=== PATIENT | female | born 2000 | race Caucasian/White ===

== ENCOUNTER → 2023-05-30 | Outpatient (REF) | payer OTHER ==
[2023-05-30 18:44] LABS: URINE PREG TEST NEGATIVE (NEGATIVE)
[2023-05-30 18:51] LABS: APPEARANCE, URINE HAZY (CLEAR); BACTERIA, URINE AUTO NEGATIVE (NEGATIVE); BILIRUBIN, URINE AUTO NEGATIVE (NEGATIVE); BLOOD, URINE BLOOD 3+ (NEGATIVE); COLOR, URINE YELLOW (YELLOW); GLUCOSE, URINE (UA) AUTO NEGATIVE (NEGATIVE); KETONE, URINE AUTO NEGATIVE (NEGATIVE); LEUKOCYTE ESTERASE, URINE AUTO NEGATIVE (NEGATIVE); MUCUS, URINE SMALL (NEGATIVE); NITRITE, URINE AUTO NEGATIVE (NEGATIVE); PROTEIN, URINE AUTO NEGATIVE (NEGATIVE); RBC, URINE AUTO 17 /HPF (0-3); SQUAMOUS EPITHELIAL CELL UR AU 9 /HPF (0-6); UROBILINOGEN, URINE AUTO 0.2 mg/dL (0.0-2.0); WBC, URINE AUTO 3 /HPF (0-3)
== END ==
LOC: M LAB REF 18:24
PROVIDERS: ATTEND Physician Assistant Medical
DX: N39.0 Urinary tract infection, site not specified (principal)

== ENCOUNTER 2023-06-03 07:43 | Emergency (ER) | payer OTHER ==
[~2023-06-03] VITALS: Ht 175.3 cm; Wt 90.9 kg
[2023-06-03 08:35] LABS: BASO # 0.1 10^3/uL (0.0-0.2); BASO % 0.6 % (0.0-1.0); EOS # 0.1 10^3/uL (0.0-0.5); HEMATOCRIT 39.9 % (36.0-47.0); HEMOGLOBIN 14.1 g/dl (12.0-15.5); LYMPH % 18.8 % (24.0-44.0); MEAN CORPUSCULAR HEMOGLOBIN 30.7 pg (27.0-33.0); MEAN CORPUSCULAR HGB CONC 35.3 g/dl (32.0-36.5); MEAN CORPUSCULAR VOLUME 86.9 fl (80.0-96.0); MONO # 0.8 10^3/uL (0.0-0.8); MONO % 7.2 % (2.0-8.0); NEUTROPHILS # 7.5 10^3/uL (1.5-8.5); NEUTROPHILS % 71.7 % (36.0-66.0); PLATELET COUNT, AUTOMATED 312 10^3/uL (150-450); RED BLOOD COUNT 4.59 10^6/uL (4.00-5.40); WHITE BLOOD COUNT 10.5 10^3/uL (4.0-10.0)
[2023-06-03 08:50] LABS: BLOOD UREA NITROGEN 13 MG/DL (9-23); CALCIUM LEVEL 9.1 MG/DL (8.5-10.1); CARBON DIOXIDE LEVEL 24 MMOL/L (20-31); CHLORIDE LEVEL 107 MMOL/L (98-107); CREATININE FOR GFR 0.65 MG/DL (0.55-1.30); GLOMERULAR FILTRATION RATE > 60.0 (>60); GLUCOSE, FASTING 123 MG/DL (60-100); POTASSIUM SERUM 4.1 MMOL/L (3.5-5.1); SODIUM LEVEL 139 MMOL/L (136-145)
[2023-06-03 10:17] LABS: GC DNA AMPLIFICATION NEGATIVE (NEGATIVE)
[2023-06-03] MEDS ORDERED: metroNIDAZOLE (FLAGYL) 500MG TABLET PO ONE (11:55)
[2023-06-03] MEDS ORDERED: METR-265 PO (11:56)
[2023-06-03 12:03] VITALS: BP 140/85; TEMP 97.9; O2SAT 97
[2023-06-03] MEDS ORDERED: ACETAMINOPHEN 500 MG TAB PO ONE (12:05)
[2023-06-04] MEDS ORDERED: NAPR-837 PO (16:21)
[2023-06-04] MEDS ORDERED: ONDA4TAB6 PO (16:22)
== END 2023-06-03 12:12 | disposition home or self-care (01) ==
LOC: M ED 07:43
DX: N76.1 Subacute and chronic vaginitis (principal); N83.201 Unspecified ovarian cyst, right side; R10.2 Pelvic and perineal pain; F31.9 Bipolar disorder, unspecified

== ENCOUNTER 2023-06-04 14:31 | Emergency (ER) | payer OTHER ==
[~2023-06-04] VITALS: Ht 175.3 cm; Wt 101.0 kg
[~2023-06-04 14:31] MED LIST: METR-265 PO
[2023-06-04] MEDS ORDERED: KETOROLAC 60MG 2ML VIAL IM ONE (15:45)
[2023-06-04] MEDS ORDERED: NAPR-837 PO (16:21)
[2023-06-04] MEDS ORDERED: ONDA4TAB6 PO (16:22)
[2023-06-04 16:35] VITALS: BP 124/78; TEMP 97.3; O2SAT 98
== END 2023-06-04 16:37 | disposition home or self-care (01) ==
LOC: M ED 14:31
DX: N83.291 Other ovarian cyst, right side (principal)
CPT/HCPCS: 76830; 76856; 80047; 93976; 96372; 99283; J1885

== ENCOUNTER 2023-06-12 00:03 | Emergency (ER) | payer OTHER ==
[~2023-06-12] VITALS: Ht 175.3 cm; Wt 102.0 kg
[~2023-06-12 00:03] MED LIST changes: +NAPR-837 PO; +ONDA4TAB6 PO
[2023-06-12 00:04] VITALS: BP 147/95; TEMP 98.9; O2SAT 96
[2023-06-12 02:19] LABS: BASO # 0.1 10^3/uL (0.0-0.2); BASO % 0.8 % (0.0-1.0); EOS # 0.4 10^3/uL (0.0-0.5); EOS % 3.4 % (0.0-3.0); HEMATOCRIT 39.5 % (36.0-47.0); HEMOGLOBIN 13.5 g/dl (12.0-15.5); LYMPH # 2.7 10^3/uL (1.5-5.0); LYMPH % 26.6 % (24.0-44.0); MEAN CORPUSCULAR HEMOGLOBIN 30.4 pg (27.0-33.0); MEAN CORPUSCULAR HGB CONC 34.2 g/dl (32.0-36.5); MONO # 0.9 10^3/uL (0.0-0.8); MONO % 8.8 % (2.0-8.0); NEUTROPHILS # 6.2 10^3/uL (1.5-8.5); NEUTROPHILS % 59.8 % (36.0-66.0); PLATELET COUNT, AUTOMATED 306 10^3/uL (150-450); RED BLOOD COUNT 4.44 10^6/uL (4.00-5.40); WHITE BLOOD COUNT 10.3 10^3/uL (4.0-10.0)
[2023-06-12 02:38] LABS: LIPASE 72 U/L (12-53)
[2023-06-12 02:40] LABS: ALBUMIN 4.2 G/DL (3.2-5.2); ALKALINE PHOSPHATASE 73 U/L (46-116); ALT/SGPT 44 U/L (7.0-40); AST/SGOT 23 U/L (<34); BILIRUBIN,DIRECT 0.2 MG/DL (<0.4); BILIRUBIN,TOTAL 0.6 MG/DL (0.3-1.2); BLOOD UREA NITROGEN 12 MG/DL (9-23); CALCIUM LEVEL 9.2 MG/DL (8.5-10.1); CARBON DIOXIDE LEVEL 26 MMOL/L (20-31); CHLORIDE LEVEL 104 MMOL/L (98-107); CREATININE FOR GFR 0.64 MG/DL (0.55-1.30); GLOMERULAR FILTRATION RATE > 60.0 (>60); GLUCOSE, FASTING 92 MG/DL (60-100); POTASSIUM SERUM 4.2 MMOL/L (3.5-5.1); SODIUM LEVEL 139 MMOL/L (136-145); TOTAL PROTEIN 6.9 G/DL (5.7-8.2)
== END 2023-06-12 05:35 | disposition left against medical advice (07) ==
LOC: M ED 00:03
DX: Z53.21 Procedure and treatment not carried out due to patient leaving prior to being seen by health care provider (principal)

== ENCOUNTER 2023-09-04 16:19 | Emergency (ER) | payer OTHER ==
[~2023-09-04] VITALS: Ht 175.3 cm; Wt 98.4 kg
[2023-09-04 17:36] LABS: BASO # 0.1 10^3/uL (0.0-0.2); BASO % 0.6 % (0.0-1.0); EOS # 0.2 10^3/uL (0.0-0.5); EOS % 1.9 % (0.0-3.0); HEMOGLOBIN 13.5 g/dl (12.0-15.5); LYMPH # 2.4 10^3/uL (1.5-5.0); LYMPH % 28.6 % (24.0-44.0); MEAN CORPUSCULAR HEMOGLOBIN 30.4 pg (27.0-33.0); MEAN CORPUSCULAR HGB CONC 35.5 g/dl (32.0-36.5); MEAN CORPUSCULAR VOLUME 85.6 fl (80.0-96.0); MONO # 0.7 10^3/uL (0.0-0.8); MONO % 7.8 % (2.0-8.0); NEUTROPHILS # 5.1 10^3/uL (1.5-8.5); NEUTROPHILS % 60.5 % (36.0-66.0); PLATELET COUNT, AUTOMATED 262 10^3/uL (150-450); RED BLOOD COUNT 4.44 10^6/uL (4.00-5.40); WHITE BLOOD COUNT 8.4 10^3/uL (4.0-10.0)
[2023-09-04 18:01] LABS: BLOOD UREA NITROGEN 12 MG/DL (9-23); CALCIUM LEVEL 9.9 MG/DL (8.5-10.1); CARBON DIOXIDE LEVEL 27 MMOL/L (20-31); CHLORIDE LEVEL 105 MMOL/L (98-107); CREATININE FOR GFR 0.52 MG/DL (0.55-1.30); GLOMERULAR FILTRATION RATE > 60.0 (>60); GLUCOSE, FASTING 91 MG/DL (60-100); POTASSIUM SERUM 4.1 MMOL/L (3.5-5.1); SODIUM LEVEL 137 MMOL/L (136-145)
[2023-09-04 18:17] LABS: HCG, SERUM QUANTITATIVE 8549.5 MIU/ML (<4.2)
[2023-09-04 20:56] VITALS: BP 163/90; TEMP 98.6; O2SAT 100
== END 2023-09-04 20:57 | disposition home or self-care (01) ==
LOC: M ED 16:19
DX: O20.0 Threatened abortion (principal)

== ENCOUNTER 2023-09-06 17:23 | Day surgery (SDC) | payer OTHER ==
[~2023-09-06] VITALS: Ht 175.3 cm; Wt 99.3 kg
[~2023-09-06 17:23] MED LIST changes: +LIDOCAINE 1% SDV 30ML VIAL As Ordered ONE
[2023-09-06] MEDS: DOXYCYCLINE HYCLATE 100MG TABLET PO ONE ×2 (18:05→20:18)
[2023-09-06] MEDS ORDERED: propofoL 200 MG/20 ML VIAL As Ordered ONE ×2 (19:49→21:30)
[2023-09-06] MEDS ORDERED: fentaNYL 100 MCG/2 ML INJECTION As Ordered ONE ×2 (19:49→22:10)
[2023-09-06] MEDS ORDERED: LIDOCAINE 2% 100MG/5ML SDV (FOR ANES.) As Ordered ONE (19:49)
[2023-09-06] MEDS ORDERED: MIDAZOLAM INJ 2MG/2ML VIAL As Ordered ONE (19:49)
[2023-09-06] MEDS ORDERED: ONDANSETRON 4MG 2ML VIAL As Ordered ONE (19:50)
[2023-09-06] MEDS ORDERED: KETOROLAC 30 MG/ML 1ML VIAL IV STA (20:09)
[2023-09-06] MEDS ORDERED: METHYLERGONOVINE MALEATE 0.2MG/ML 1ML VIAL As Ordered ONE (21:41)
[2023-09-06] MEDS ORDERED: oxyCODONE 5MG TAB PO STA (23:01)
[2023-09-06 23:21] VITALS: BP 134/75; TEMP 97.9; O2SAT 99
== END 2023-09-06 23:33 | disposition home or self-care (01) ==
LOC: M SDC 17:23
PROVIDERS: ATTEND Obstetrics & Gynecology
DX: O02.1 Missed abortion (principal); O99.341 Other mental disorders complicating pregnancy, first trimester; F60.3 Borderline personality disorder; F43.10 Post-traumatic stress disorder, unspecified
CPT/HCPCS: 59820; 88305; J1100; J1885; J2250; J2405; J3010

== ENCOUNTER → 2023-09-29 | Outpatient (REF) | payer OTHER ==
[~2023-09-29] MED LIST changes: -LIDOCAINE 1% SDV 30ML VIAL As Ordered ONE
== END ==
LOC: M LAB REF 16:13
PROVIDERS: ATTEND Physician Assistant
DX: J02.9 Acute pharyngitis, unspecified (principal)

== ENCOUNTER 2024-04-24 17:28 | Emergency (ER) | payer OTHER ==
[~2024-04-24] VITALS: Ht 175.3 cm; Wt 80.4 kg
[~2024-04-24 17:28] MED LIST changes: +ONDA-282 PO; -ONDA4TAB6 PO
[2024-04-24] MEDS: ACETAMINOPHEN TAB 650MG DOSE (2X325MG) PO ONE (20:15)
[2024-04-24 21:15] VITALS: BP 130/69; TEMP 97.1; O2SAT 100
== END 2024-04-24 21:18 | disposition home or self-care (01) ==
LOC: M ED 17:28
DX: R51.9 Headache, unspecified (principal); R10.2 Pelvic and perineal pain; F31.9 Bipolar disorder, unspecified; F90.9 Attention-deficit hyperactivity disorder, unspecified type

== ENCOUNTER → 2024-05-16 | Outpatient (CLI) | payer OTHER ==
[2024-05-16 13:57] LABS: HEMATOCRIT 38.1 % (36.0-47.0); HEMOGLOBIN 12.8 g/dl (12.0-15.5); MEAN CORPUSCULAR HEMOGLOBIN 29.7 pg (27.0-33.0); MEAN CORPUSCULAR HGB CONC 33.6 g/dl (32.0-36.5); MEAN CORPUSCULAR VOLUME 88.4 fl (80.0-96.0); PLATELET COUNT, AUTOMATED 244 10^3/uL (150-450); RED BLOOD COUNT 4.31 10^6/uL (4.00-5.40); WHITE BLOOD COUNT 12.2 10^3/uL (4.0-10.0)
[2024-05-16 14:46] LABS: HIV 1&2 SCREEN NEGATIVE (NEGATIVE)
[2024-05-16 14:55] LABS: HEPATITIS C VIRUS ABY INDEX 0.02 INDEX (<0.8)
[2024-05-16 15:10] LABS: GC DNA AMPLIFICATION NEGATIVE (NEGATIVE)
== END ==
LOC: M PLALAB 09:17
PROVIDERS: ATTEND Obstetrics & Gynecology
DX: Z34.81 Encounter for supervision of other normal pregnancy, first trimester (principal)

== ENCOUNTER → 2024-07-21 | Outpatient (CLI) | payer OTHER | LOC: M WHC 14:41 | PROVIDERS: ATTEND Obstetrics & Gynecology | DX: O32.1XX0 Maternal care for breech presentation, not applicable or unspecified (principal); Z3A.19 19 weeks gestation of pregnancy ==

== ENCOUNTER → 2024-08-17 | Outpatient (REF) | payer OTHER | LOC: M LAB REF 17:48 | PROVIDERS: ATTEND Physician Assistant Medical | DX: J02.9 Acute pharyngitis, unspecified (principal) ==

== ENCOUNTER 2024-08-26 14:56 | Outpatient (CLI) | payer OTHER ==
[~2024-08-26] VITALS: Ht 175.3 cm; Wt 95.1 kg
[2024-08-26 15:20] VITALS: BP 124/68
[2024-08-26] MEDS ORDERED: ACET-897 PO (15:24)
[2024-08-26] MEDS ORDERED: PRENTAB9 PO (15:24)
== END 2024-08-26 16:10 | disposition home or self-care (01) ==
LOC: M LDO 14:56
PROVIDERS: ATTEND Obstetrics & Gynecology
DX: O36.8120 Decreased fetal movements, second trimester, not applicable or unspecified (principal); Z3A.24 24 weeks gestation of pregnancy
CPT/HCPCS: 59025; G0463

== ENCOUNTER 2024-09-17 14:19 | Outpatient (CLI) | payer OTHER ==
[2024-09-17] VITALS (11 sets, daily range): BP systolic 118–148; BP diastolic 65–94; O2SAT 95–97
[~2024-09-17] VITALS: Ht 175.3 cm; Wt 100.4 kg
[~2024-09-17 14:19] MED LIST changes: +ACET-897 PO; +PRENTAB9 PO
[2024-09-17] MEDS ORDERED: HOME MED LIST COMPLETE! XX SCH (14:40)
[2024-09-17] MEDS: IBUPROFEN 600MG TAB PO ONE (15:46)
[2024-09-17 15:51] LABS: CREATININE,RANDOM URINE 24.5 MG/DL
[2024-09-17 15:56] LABS: TOTAL PROTEIN,RANDOM URINE < 6.0 MG/DL (0.0-14.0)
[2024-09-17 16:03] LABS: HEMATOCRIT 34.7 % (36.0-47.0); HEMOGLOBIN 11.9 g/dl (12.0-15.5); MEAN CORPUSCULAR HEMOGLOBIN 30.4 pg (27.0-33.0); MEAN CORPUSCULAR HGB CONC 34.3 g/dl (32.0-36.5); MEAN CORPUSCULAR VOLUME 88.7 fl (80.0-96.0); PLATELET COUNT, AUTOMATED 212 10^3/uL (150-450); RED BLOOD COUNT 3.91 10^6/uL (4.00-5.40)
[2024-09-17 16:27] LABS: URIC ACID 3.3 MG/DL (3.1-7.8)
[2024-09-17 16:29] LABS: LDH LACTATE DEHYDROGENASE 196 U/L (120-246)
[2024-09-17 16:30] LABS: ALT/SGPT 18 U/L (7.0-40); AST/SGOT 12 U/L (<34); BILIRUBIN,TOTAL 0.4 MG/DL (0.3-1.2); CREATININE FOR GFR 0.39 MG/DL (0.55-1.30); GLOMERULAR FILTRATION RATE > 60.0 (>60)
== END 2024-09-17 17:30 | disposition home or self-care (01) ==
LOC: M LDO 14:19
PROVIDERS: ATTEND Specialist
DX: O26.892 Other specified pregnancy related conditions, second trimester (principal); R51.9 Headache, unspecified; R00.9 Unspecified abnormalities of heart beat; Z3A.27 27 weeks gestation of pregnancy
CPT/HCPCS: 36415; 59025; 82247; 82570; 83615; 84156; 84450; 84460; 84550; 85027; 93005; G0463

== ENCOUNTER → 2024-09-22 | Outpatient (CLI) | payer OTHER ==
[2024-09-22 15:27] LABS: HEMATOCRIT 34.7 % (36.0-47.0); HEMOGLOBIN 11.8 g/dl (12.0-15.5); MEAN CORPUSCULAR HEMOGLOBIN 30.3 pg (27.0-33.0); PLATELET COUNT, AUTOMATED 220 10^3/uL (150-450); WHITE BLOOD COUNT 10.1 10^3/uL (4.0-10.0)
[2024-09-22 15:53] LABS: GLUCOSE CHALLENGE TEST 1 HOUR 93 MG/DL (LESS THAN 140)
[2024-09-22 16:04] LABS: FREE T4 1.16 NG/DL (0.89-1.76)
[2024-09-22 16:05] LABS: THYROID STIMULATING HORMONE 0.587 uIU/ML (0.55-4.78)
[2024-09-22 16:29] LABS: HIV 1&2 SCREEN NEGATIVE (NEGATIVE)
[2024-09-22 16:37] LABS: HEPATITIS C VIRUS ABY INDEX 0.13 INDEX (<0.8)
[2024-09-22 17:42] LABS: GC DNA AMPLIFICATION NEGATIVE (NEGATIVE)
== END ==
LOC: M PLALAB 12:01
PROVIDERS: ATTEND Obstetrics & Gynecology
DX: Z34.82 Encounter for supervision of other normal pregnancy, second trimester (principal)
CPT/HCPCS: 36415; 82950; 84439; 84443; 85027; 86780; 86803; 86850; 86900; 86901; 87389; 87810; 87850; J2790

== ENCOUNTER → 2024-09-26 | Outpatient (REF) | payer OTHER ==
[2024-09-26 14:52] LABS: TOTAL PROTEIN,RANDOM URINE 17.9 MG/DL (0.0-14.0)
[2024-09-26 14:57] LABS: CREATININE,RANDOM URINE 116.5 MG/DL
[2024-09-26 15:14] LABS: Trichomonas vaginalis (AMP) NOT DETECTED (NEGATIVE)
[2024-09-26 15:39] LABS: GC DNA AMPLIFICATION NEGATIVE (NEGATIVE)
== END ==
LOC: M SFHCWAGY 12:50
PROVIDERS: ATTEND Obstetrics & Gynecology
DX: O13.3 Gestational [pregnancy-induced] hypertension without significant proteinuria, third trimester (principal); R35.0 Frequency of micturition; R39.15 Urgency of urination

== ENCOUNTER → 2024-09-27 | Outpatient (REF) | payer OTHER ==
[2024-09-27 18:15] LABS: HEMATOCRIT 36.2 % (36.0-47.0); HEMOGLOBIN 12.2 g/dl (12.0-15.5); MEAN CORPUSCULAR HGB CONC 33.7 g/dl (32.0-36.5); MEAN CORPUSCULAR VOLUME 88.9 fl (80.0-96.0); PLATELET COUNT, AUTOMATED 230 10^3/uL (150-450); RED BLOOD COUNT 4.07 10^6/uL (4.00-5.40); WHITE BLOOD COUNT 11.9 10^3/uL (4.0-10.0)
[2024-09-27 18:22] LABS: LDH LACTATE DEHYDROGENASE 165 U/L (120-246)
[2024-09-27 18:23] LABS: ALT/SGPT 39 U/L (7.0-40); AST/SGOT 25 U/L (<34); BILIRUBIN,TOTAL 0.4 MG/DL (0.3-1.2); CREATININE FOR GFR 0.46 MG/DL (0.55-1.30); GLOMERULAR FILTRATION RATE > 60.0 (>60)
[2024-09-27 18:37] LABS: URIC ACID 3.3 MG/DL (3.1-7.8)
== END ==
LOC: M SFHCWAGY 17:32
PROVIDERS: ATTEND Obstetrics & Gynecology
DX: O13.3 Gestational [pregnancy-induced] hypertension without significant proteinuria, third trimester (principal)

== ENCOUNTER 2024-10-03 12:21 | Emergency (ER) | payer OTHER ==
[~2024-10-03] VITALS: Ht 175.3 cm; Wt 101.6 kg
[2024-10-03] MEDS ORDERED: LABE100T40 PO (12:33)
[2024-10-03 14:30] LABS: BASO # 0.1 10^3/uL (0.0-0.2); BASO % 0.7 % (0.0-1.0); EOS # 0.1 10^3/uL (0.0-0.5); EOS % 0.6 % (0.0-3.0); HEMATOCRIT 35.6 % (36.0-47.0); HEMOGLOBIN 12.2 g/dl (12.0-15.5); LYMPH # 1.5 10^3/uL (1.5-5.0); MEAN CORPUSCULAR HEMOGLOBIN 30.3 pg (27.0-33.0); MEAN CORPUSCULAR HGB CONC 34.3 g/dl (32.0-36.5); MEAN CORPUSCULAR VOLUME 88.3 fl (80.0-96.0); MONO # 0.9 10^3/uL (0.0-0.8); MONO % 7.5 % (2.0-8.0); NEUTROPHILS # 8.4 10^3/uL (1.5-8.5); NEUTROPHILS % 73.4 % (36.0-66.0); PLATELET COUNT, AUTOMATED 224 10^3/uL (150-450); RED BLOOD COUNT 4.03 10^6/uL (4.00-5.40); WHITE BLOOD COUNT 11.4 10^3/uL (4.0-10.0)
[2024-10-03 14:33] LABS: KETONE, URINE AUTO RFX NEGATIVE (NEGATIVE); LEUKOCYTE ESTERASE UR AUTO RFX NEGATIVE (NEGATIVE); MUCUS, URINE RFX SMALL (NEGATIVE); NITRITE, URINE AUTO RFX NEGATIVE (NEGATIVE); RBC, URINE AUTO RFX 1 /HPF (0-3); SQUAM EPITHELIAL CELL UR AURFX 4 /HPF (0-6); WBC, URINE AUTO RFX 3 /HPF (0-3)
[2024-10-03 14:43] LABS: INR 0.88; PROTHROMBIN TIME 12.3 SECONDS (12.5-14.5)
[2024-10-03 14:54] LABS: CK-MB VALUE MASS < 1.0 NG/ML (<3.6); LIPASE 44 U/L (12-53)
[2024-10-03 14:56] LABS: CPK CREATINE PHOSPHOKINASE 49 U/L (34-145); MB/CK RELATIVE INDEX 2.04 (< OR =4)
[2024-10-03 14:57] LABS: ALBUMIN 3.1 G/DL (3.2-5.2); ALKALINE PHOSPHATASE 78 U/L (35-104); ALT/SGPT 59 U/L (7.0-40); AST/SGOT 39 U/L (<34); BILIRUBIN,DIRECT 0.1 MG/DL (<0.4); BILIRUBIN,TOTAL 0.6 MG/DL (0.3-1.2); BLOOD UREA NITROGEN 9 MG/DL (9-23); CALCIUM LEVEL 8.9 MG/DL (8.5-10.1); CARBON DIOXIDE LEVEL 22 MMOL/L (20-31); CHLORIDE LEVEL 107 MMOL/L (98-107); CREATININE FOR GFR 0.38 MG/DL (0.55-1.30); GLOMERULAR FILTRATION RATE > 60.0 (>60); GLUCOSE, FASTING 86 MG/DL (60-100); POTASSIUM SERUM 4.3 MMOL/L (3.5-5.1); SODIUM LEVEL 139 MMOL/L (136-145); TOTAL PROTEIN 6.5 G/DL (5.7-8.2)
[2024-10-03 18:15] VITALS: BP 126/77
[2024-10-03 18:22] LABS: MAGNESIUM LEVEL 1.8 MG/DL (1.8-2.4)
[2024-10-03 18:30] VITALS: TEMP 98.1; O2SAT 98
== END 2024-10-03 18:40 | disposition home or self-care (01) ==
LOC: M ED 12:21
DX: R07.89 Other chest pain (principal); R06.02 Shortness of breath; Z3A.29 29 weeks gestation of pregnancy; R00.0 Tachycardia, unspecified; Z79.1 Long term (current) use of non-steroidal anti-inflammatories (NSAID); Z79.810 Long term (current) use of selective estrogen receptor modulators (SERMs)

== ENCOUNTER 2024-10-15 13:46 | Outpatient (CLI) | payer OTHER ==
[~2024-10-15] VITALS: Ht 175.3 cm; Wt 104.3 kg
[~2024-10-15 13:46] MED LIST changes: +LABE100T40 PO
[2024-10-15] MEDS ORDERED: BENA25CA4 PO (14:03)
[2024-10-15] MEDS ORDERED: REGL10TA6 PO (14:03)
[2024-10-15 14:05] VITALS: BP 129/78
[2024-10-15] MEDS ORDERED: HOME MED LIST COMPLETE! XX SCH (14:05)
[2024-10-15 14:15] VITALS: BP 126/77
[2024-10-15 14:39] LABS: TOTAL PROTEIN,RANDOM URINE 8.4 MG/DL (0.0-14.0)
[2024-10-15 14:44] LABS: CREATININE,RANDOM URINE 48.9 MG/DL
[2024-10-15] MEDS: FIORICET TAB PO ONE (15:14)
[2024-10-15 15:33] LABS: URIC ACID 3.6 MG/DL (3.1-7.8)
[2024-10-15 15:35] LABS: LDH LACTATE DEHYDROGENASE 168 U/L (120-246)
[2024-10-15 15:36] LABS: ALT/SGPT 29 U/L (7.0-40); AST/SGOT 16 U/L (<34); BILIRUBIN,TOTAL 0.6 MG/DL (0.3-1.2); CREATININE FOR GFR 0.49 MG/DL (0.55-1.30); GLOMERULAR FILTRATION RATE > 60.0 (>60)
[2024-10-15] MEDS ORDERED: FIOR1CAP PO (16:17)
== END 2024-10-15 16:25 | disposition home or self-care (01) ==
LOC: M LDO 13:46
PROVIDERS: ATTEND Obstetrics & Gynecology
DX: O13.3 Gestational [pregnancy-induced] hypertension without significant proteinuria, third trimester (principal); O26.893 Other specified pregnancy related conditions, third trimester; O36.0130 Maternal care for anti-D [Rh] antibodies, third trimester, not applicable or unspecified; R51.9 Headache, unspecified; Z3A.31 31 weeks gestation of pregnancy
CPT/HCPCS: 36415; 59025; 82247; 82570; 83615; 84156; 84450; 84460; 84550; G0463

== ENCOUNTER 2024-10-16 20:39 | Outpatient (CLI) | payer OTHER ==
[~2024-10-16] VITALS: Ht 175.3 cm; Wt 105.8 kg
[~2024-10-16 20:39] MED LIST changes: +BENA25CA4 PO; +FIOR1CAP PO; +REGL10TA6 PO
[2024-10-16 20:57] VITALS: BP 124/77
[2024-10-16 21:02] VITALS: BP 128/76
[2024-10-16] MEDS: FIORICET TAB PO ONE (21:06)
[2024-10-16 21:29] VITALS: BP 126/81
[2024-10-16] MEDS: LABETALOL 100MG TAB PO ONE (21:29)
[2024-10-16] MEDS: PERCOCET 5MG/325MG TAB PO ONE (22:45)
[2024-10-17 00:26] LABS: FERRITIN 18.8 NG/ML (7.3-270.7)
== END 2024-10-17 ==
LOC: M LDO 20:39
PROVIDERS: ATTEND Advanced Practice Midwife
DX: O13.3 Gestational [pregnancy-induced] hypertension without significant proteinuria, third trimester (principal); O36.0130 Maternal care for anti-D [Rh] antibodies, third trimester, not applicable or unspecified; O09.293 Supervision of pregnancy with other poor reproductive or obstetric history, third trimester; R51.9 Headache, unspecified; Z3A.31 31 weeks gestation of pregnancy
CPT/HCPCS: 36415; 59025; 82728; 83540; G0463

== ENCOUNTER → 2024-10-26 | Outpatient (CLI) | payer OTHER | LOC: M WHC 12:54 | PROVIDERS: ATTEND Obstetrics & Gynecology | DX: O13.3 Gestational [pregnancy-induced] hypertension without significant proteinuria, third trimester (principal); Z3A.33 33 weeks gestation of pregnancy ==

== ENCOUNTER 2024-11-02 15:40 | Outpatient (CLI) | payer OTHER ==
[~2024-11-02] VITALS: Ht 175.3 cm; Wt 104.7 kg
[2024-11-02 16:06] VITALS: BP 120/77
[2024-11-02] MEDS ORDERED: HOME MED LIST COMPLETE! XX SCH (16:15)
[2024-11-02 16:37] VITALS: BP 137/72
[2024-11-02 16:42] LABS: HEMATOCRIT 33.6 % (36.0-47.0); HEMOGLOBIN 11.8 g/dl (12.0-15.5); MEAN CORPUSCULAR HEMOGLOBIN 30.1 pg (27.0-33.0); MEAN CORPUSCULAR HGB CONC 35.1 g/dl (32.0-36.5); MEAN CORPUSCULAR VOLUME 85.7 fl (80.0-96.0); PLATELET COUNT, AUTOMATED 209 10^3/uL (150-450); RED BLOOD COUNT 3.92 10^6/uL (4.00-5.40)
[2024-11-02] MEDS: BETAMETHASONE SOLUSPAN 6MG/ML 5ML VIAL IM SCH (16:58)
[2024-11-02 17:04] VITALS: BP 124/72
[2024-11-02 17:05] LABS: TOTAL PROTEIN,RANDOM URINE 17.3 MG/DL (0.0-14.0)
[2024-11-02 17:07] LABS: URIC ACID 3.6 MG/DL (3.1-7.8)
[2024-11-02 17:09] VITALS: BP 117/69
[2024-11-02 17:09] LABS: LDH LACTATE DEHYDROGENASE 173 U/L (120-246)
[2024-11-02 17:10] LABS: ALT/SGPT 14 U/L (7.0-40); AST/SGOT 10 U/L (<34); BILIRUBIN,TOTAL 0.6 MG/DL (0.3-1.2); CREATININE FOR GFR 0.36 MG/DL (0.55-1.30); GLOMERULAR FILTRATION RATE > 60.0 (>60)
[2024-11-02 17:11] LABS: CREATININE,RANDOM URINE 143.2 MG/DL
[2024-11-02 17:19] VITALS: BP 125/67
[2024-11-03] MEDS ORDERED: TUMS500C PO (17:10)
== END 2024-11-02 18:22 | disposition home or self-care (01) ==
LOC: M LDO 15:40
PROVIDERS: ATTEND Obstetrics & Gynecology
DX: O13.3 Gestational [pregnancy-induced] hypertension without significant proteinuria, third trimester (principal); O09.293 Supervision of pregnancy with other poor reproductive or obstetric history, third trimester; Z67.40 Type O blood, Rh positive; Z79.899 Other long term (current) drug therapy; Z3A.34 34 weeks gestation of pregnancy
CPT/HCPCS: 36415; 59025; 82247; 82570; 83615; 84156; 84450; 84460; 84550; 85027; 96372; G0463; J0702

== ENCOUNTER 2024-11-03 16:51 | Outpatient (CLI) | payer OTHER ==
[~2024-11-03] VITALS: Ht 175.3 cm; Wt 106.0 kg
[2024-11-03] MEDS ORDERED: TUMS500C PO (17:10)
[2024-11-03] MEDS ORDERED: HOME MED LIST COMPLETE! XX SCH (17:10)
[2024-11-03 17:13] VITALS: BP 121/70
[2024-11-03 17:14] VITALS: O2SAT 93
[2024-11-03] MEDS: BETAMETHASONE SOLUSPAN 6MG/ML 5ML VIAL IM ONE (17:24)
[2024-11-03 17:31] VITALS: O2SAT 97
== END 2024-11-03 17:55 | disposition home or self-care (01) ==
LOC: M LDO 16:51
PROVIDERS: ATTEND Specialist
DX: O13.3 Gestational [pregnancy-induced] hypertension without significant proteinuria, third trimester (principal); O09.293 Supervision of pregnancy with other poor reproductive or obstetric history, third trimester; Z67.40 Type O blood, Rh positive; Z3A.34 34 weeks gestation of pregnancy
CPT/HCPCS: 59025; 96372; G0463; J0702

== ENCOUNTER → 2024-11-08 | Outpatient (REF) | payer OTHER ==
[~2024-11-08] MED LIST changes: +TUMS500C PO
== END ==
LOC: M SFHCWAGY 12:58
PROVIDERS: ATTEND Specialist
DX: O13.3 Gestational [pregnancy-induced] hypertension without significant proteinuria, third trimester (principal); Z36.85 Encounter for antenatal screening for Streptococcus B

== ENCOUNTER 2024-11-24 17:50 | Inpatient (IN) | payer OTHER ==
[~2024-11-24] VITALS: Ht 175.3 cm; Wt 109.9 kg
[2024-11-24 18:11] VITALS: BP 122/82
[2024-11-24] MEDS ORDERED: HOME MED LIST COMPLETE! XX SCH (18:30)
[2024-11-24] MEDS: LACTATED RINGER'S 1000 ML IV STA (19:04)
[2024-11-24] MEDS ORDERED: METHYLERGONOVINE MALEATE 0.2MG/ML 1ML VIAL IM PRN (19:05)
[2024-11-24] MEDS ORDERED: TRANEXAMIC ACID INJection 1,000 MG in NS 100 ML IV PRN (19:05)
[2024-11-24] MEDS ORDERED: OXYTOCIN DRIP 30 UNITS in IV 1 EA IV PRN (19:05)
[2024-11-24] MEDS ORDERED: CARBOPROST TROMETHAMINE 250 MCG/ML AMP IM PRN (19:05)
[2024-11-24] MEDS: miSOPROStol 50MCG 1/2 TABLET PO SCH (19:38)
[2024-11-24 19:40] LABS: HEMATOCRIT 36.4 % (36.0-47.0); HEMOGLOBIN 12.4 g/dl (12.0-15.5); MEAN CORPUSCULAR HEMOGLOBIN 29.8 pg (27.0-33.0); MEAN CORPUSCULAR HGB CONC 34.1 g/dl (32.0-36.5); MEAN CORPUSCULAR VOLUME 87.5 fl (80.0-96.0); PLATELET COUNT, AUTOMATED 230 10^3/uL (150-450); RED BLOOD COUNT 4.16 10^6/uL (4.00-5.40); WHITE BLOOD COUNT 10.3 10^3/uL (4.0-10.0)
[2024-11-24] MEDS ORDERED: LR 1,000 ML IV SCH (20:00)
[2024-11-24 20:39] LABS: HIV 1&2 SCREEN NEGATIVE (NEGATIVE)
[2024-11-24 20:47] LABS: HEPATITIS C VIRUS ABY INDEX 0.05 INDEX (<0.8)
[2024-11-24 21:41] VITALS: BP 148/79
[2024-11-24] MEDS: LABETALOL 100MG TAB PO SCH (21:42)
[2024-11-24 23:10] VITALS: BP 126/71
[2024-11-24] MEDS: ACETAMINOPHEN 325 MG TAB PO ONE (23:34)
[2024-11-25] VITALS (57 sets, daily range): BP systolic 100–171; BP diastolic 50–85; O2SAT 92–99
[2024-11-25] MEDS: LR 1,000 ML IV SCH (08:53)
[2024-11-25] MEDS: OXYTOCIN DRIP 30 UNITS in IV 1 EA IV SCH (09:03)
[2024-11-25] MEDS ORDERED: FENTANYL 2MCG/ML ROPIVACAINE 0.2% IN 0.9% NACL 100ML IVBAG As Ordered ONE (13:08)
[2024-11-25] MEDS ORDERED: NALOXONE INJ 0.4MG/1ML VIAL IV PRN (13:35)
[2024-11-25] MEDS ORDERED: LR 500 ML IV PRN (13:35)
[2024-11-25] MEDS ORDERED: EPIDURAL/PCA KEYS XX PRN (13:35)
[2024-11-25] MEDS ORDERED: diphenhydrAMINE 50MG/ML VIAL IV PRN (13:35)
[2024-11-25] MEDS: ePHEDrine SULFATE 25 MG/5 ML(5MG/ML) SYRINGE IVP PRN (14:19)
[2024-11-25] MEDS: FENTANYL/ROPIVACAINE/NACL BAG 100 ML EPIDURAL SCH (14:45)
[2024-11-25] MEDS: ONDANSETRON 4MG 2ML VIAL IV PRN (17:13)
[2024-11-25] MEDS: LIDOCAINE 1% MDV 20ML VIAL INFIL PRN (18:09)
[2024-11-25] MEDS ORDERED: ACETAMINOPHEN 325 MG TAB PO PRN (18:25)
[2024-11-25] MEDS ORDERED: METHYLERGONOVINE MALEATE 0.2 MG TAB PO PRN (18:25)
[2024-11-25] MEDS ORDERED: DOCUSATE SODIUM 100MG CAPSULE PO PRN (18:25)
[2024-11-25] MEDS: ACETAMINOPHEN 500 MG TAB PO PRN (19:04)
[2024-11-25] MEDS: IBUPROFEN 800 MG TAB PO PRN (19:04)
[2024-11-26 06:00] VITALS: BP 116/59; O2SAT 97
[2024-11-26] MEDS: PRENATAL VITAMINS CHEWABLE TABLET PO SCH (08:41)
[2024-11-26] MEDS: DIBUCAINE 1% OINTMENT 30GM TOP PRN (08:42)
[2024-11-26] MEDS: IBUPROFEN 600MG TAB PO PRN (08:50)
[2024-11-26] MEDS: ANUSOL HC CREAM 30GM TOP PRN (10:04)
[2024-11-26] MEDS: RHOGAM 300MCG (1500IU) INJ IM SCH (15:17)
[2024-11-26 18:00] VITALS: BP 128/69; O2SAT 98
[2024-11-27 06:00] VITALS: BP 140/80; O2SAT 99
[2024-11-27] MEDS: MEASLES,MUMPS,RUBELLA VACCINE INJ (MMR-II) SC.IMMUN ONE (09:00)
[2024-11-27] MEDS ORDERED: IBUP80TA PO (10:54)
[2024-11-27] MEDS ORDERED: ACET-683 PO (10:54)
== END 2024-11-27 12:30 | disposition home or self-care (01) | DRG 807 ==
LOC: M LDI 17:50 → M OBS 11-25 20:25
PROVIDERS: ADMIT Advanced Practice Midwife; ATTEND Advanced Practice Midwife
PROC: 3E0P7GC Introduction of Other Therapeutic Substance into Female Reproductive, Via Natural or Artificial Opening (ICD-10-PCS; 2024-11-24)
PROC: 10E0XZZ Delivery of Products of Conception, External Approach (ICD-10-PCS; principal; 2024-11-25)
DX: O13.4 Gestational [pregnancy-induced] hypertension without significant proteinuria, complicating childbirth (principal); Z37.0 Single live birth; Z3A.37 37 weeks gestation of pregnancy; Z79.899 Other long term (current) drug therapy